=== PATIENT | male | born 1955 | race Caucasian/White ===

== ENCOUNTER 2022-10-27 09:56 | Outpatient (CLI) | payer MEDICARE ==
[2022-10-27] MEDS ORDERED: Iopamidol 300 61% 100 ML VIAL FS ONE (14:31)
== END 2022-10-27 09:57 | disposition home or self-care (01) ==
LOC: CSHCT 09:56
PROVIDERS: ATTEND Physician Assistant
DX: R30.0 Dysuria (principal); R91.1 Solitary pulmonary nodule; N28.1 Cyst of kidney, acquired; R16.0 Hepatomegaly, not elsewhere classified; M47.816 Spondylosis without myelopathy or radiculopathy, lumbar region; Z98.890 Other specified postprocedural states
CPT/HCPCS: 74178; Q9967